=== PATIENT | male | born 1985 ===

== ENCOUNTER 2020-02-25 09:41 | Day surgery (SDC) | payer BC ==
--- OUTSIDE RECORDS SUMMARY | 2020-02-25 09:48 | XMS REPORT | Continuity of Care Document ---
:1985 Author Organization [facility] Care Team Providers Name Role Phone [facility] Unavailable Un available Problems Problem Status Onset Classification Date Comments Sourc e Date Reported Migraine Active Problem 05/16/2019 [facility] (disorder) Group Migraine Active Problem 05/16/2019 [facility] without aura Group (disorder) Medications Medication Details Route Status Patient Ordering Order Source Instructions Provider Date predniSONE 10 See Active mg oral Instructions, 018 Medical tablet 4 tabs PO Group daily x 3 days, then 3 tabs PO daily x 3 days, then 2 tabs PO daily x 3 days, then 1 tab PO daily x 3 days then stop., # 30 tab, 0 Refill(s), Pharmacy: [facility] [id number] Nystatin See Active [id number] UNT/ML Instructions, 017 Medi tana Topical Cream Apply to Group affected area BID until resolved, then for 2 additional weeks., # 30 gm, 2 Refill(s), Pharmacy: [facility] [id number] Allergies, Adverse Reactions, Alerts Substance Category Reaction Severity Reaction Status Date Comments S ource type Reported No Known Assertion Drug Medication allergy Medic al Allergies Group Immunizations Immunization Date Site Status Last Comments Source Given Updated influenza virus Right completed Mario Result Co mment: Fluzone 0.5ml, IM right deltoid, needle: 25g/1", [facility] [place]: 88748-668-29, Lot: [id number], Exp: 02/02/2020, [employer] vaccine, 9 Deltoid Group inactivated<sup>1 No adverse r eaction at time of visit. </sup> influenza virus Right completed Marcus Result Co mment: [facility] [id number] LOT# [id number] EXP 02/01/2019 IM needle 25G 1" [employer]i [employer] Medical vaccine, 8 Deltoid Group inactivated<sup>1 no adverse r eactions at time of visit </sup> influenza virus Right completed Velazquez Result Co mment: [facility] [id number] LOT# [id number] EXP 02/01/2019 IM needle 25G 1" [facility]i [facility] Medical vaccine, 8 Deltoid Group inactivated<sup>2 no adverse r eactions at time of visit </sup> influenza virus Left completed Velazquez Result Co mment: [facility] [id number] LOT# [id number] EXP 02/01/2018 IM needle 25G 1" [employer]i [facility] Medical vaccine, 7 Deltoid Group inactivated<sup>1 no reaction at time of visit </sup> influenza virus Left completed Velazquez Result Co mment: [facility] [id number] LOT# [id number] EXP 02/01/2018 IM needle 25G 1" [employer]i [facility] Medical vaccine, 7 Deltoid Group inactivated<sup>2 no reaction at time of visit </sup> influenza virus Left completed Velazquez Result Co mment: [facility] [id number] LOT# [id number] EXP 02/01/2018 IM needle 25G 1" [employer]i [facility] Medical vaccine, 7 Deltoid Group inactivated<sup>3 no reaction at time of visit </sup> diphtheria/pertus Left completed Velazquez Result Comment: [facility] [id number] LOT# [id number] EXP 06/26/2019 IM needle 25G 1" [employer]ofi [facility] Medical sis, acel/tetanus 7 Deltoid Gr oup adult<sup>2</sup> no reaction at time of visit diphtheria/pertus Left completed Velazquez Result Comment: [facility] 90369-329-68 LOT# [id number] EXP 06/26/2019 IM needle 25G 1" [employer]ofi [facility] Medical sis, acel/tetanus 7 Deltoid Gr oup adult<sup>3</sup> no reaction at time of visit diphtheria/pertus Left completed Velazquez Result Comment: [facility] [id number] LOT# [id number] EXP 06/26/2019 IM needle 25G 1" [employer]ofi [facility] Medical sis, acel/tetanus 7 Deltoid Gr oup adult<sup>4</sup> no reaction at time of visit Results No Data Provided for This Section Pathology Reports No Data Provided for This Section Diagnostic Reports No Data Provided for This Section Consultation Notes No Data Provided for This Section Discharge Summaries No Data Provided for This Section History and Physicals No Data Provided for This Section Vital Signs Vital Sign Value Date Comments Source BMI Calculated 28.93 11/12/2018 [facility] o[facility] Height 190.5 cm 11/12/2018 Medical Grou p Weight 105 11/12/2018 Medical Grou p Systolic (mm Hg) 137 11/12/2018 Medical Group Diastolic (mm Hg) 79 11/12/2018 Medical Group Heart Rate 60 11/12/2018 [facility] p Temperature Oral (F) 98.5 F 11/12/2018 Medi tana Group BMI Calculated 27.73 08/08/2018 Medical Gr oup Weight 100.636 08/08/2018 [facility] p Height 190.5 cm 08/08/2018 Medical Grou p Temperature Oral (F) 98.0 F 08/08/2018 [facility] tana Group Heart Rate 98 08/08/2018 Medical Grou p Systolic (mm Hg) 135 08/08/2018 Medical Group Diastolic (mm Hg) 82 08/08/2018 Medical Group Heart Rate 61 06/05/2018 Medical Grou p Temperature Oral (F) 97.9 F 06/05/2018 [facility] tana Group Height 190.5 cm 06/05/2018 Medical Grou p BMI Calculated 28.16 06/05/2018 Medical Gr oup Weight 102.182 06/05/2018 Medical Grou p Systolic (mm Hg) 119 06/05/2018 Medical Group Diastolic (mm Hg) 74 06/05/2018 Medical Group Weight 107.909 11/28/2017 Medical Grou p BMI Calculated 29.73 11/28/2017 Medical Gr oup Systolic (mm Hg) 129 11/28/2017 Medical Group Diastolic (mm Hg) 77 11/28/2017 Medical Group Temperature Oral (F) 83 F 11/28/2017 [facility] tana Group Heart Rate 83 11/28/2017 Medical Grou p Height 190.5 cm 11/28/2017 Medical Grou p BMI Calculated 31.24 07/01/2017 Medical Gr oup Temperature Oral (F) 98.0 F 07/01/2017 Medi tana Group Heart Rate 86 07/01/2017 Medical Grou p Weight 113.364 07/01/2017 Medical Grou p Systolic (mm Hg) 126 07/01/2017 Medical Group Diastolic (mm Hg) 84 07/01/2017 Medical Group Height 190.5 cm 07/01/2017 Medical Grou p Encounters Location Location Encounter Encounter Reason Attending ADM DC Stat us Source Details Type Number For Provider Date Date Visit Outpatient [id number] RONNELL 12/28 Active [facility] Out[facility] [id number] RONNELL 07/01 Active [facility] MG Outpatient [id number] Ronnell 07/01 07/02 Primary [facility] /[facility] Ethan MG Phone [phone] 07/08 07/10 Primary Message /2016 [facility] Outpatient [id number] RONNELL 08/01 Active [facility] /2017 [facility] Ambulatory [id number] Ronnell 08/01 08/01 Primary Pre-Reg Isbell /2016 [facility] Ethan Outpatient [id number] RONNELL 11/28 Active [facility] Casey MG Outpatient [id number] Ronnell 11/28 11/29 Primary Is[facility] /2017 [facility] Outpatient [id number] RONNELL 06/05 Active [facility] Casey MG Outpatient [id number] Ronnell 06/05 06/06 Primary Isbell /2017 [facility] Outpatient [id number] TIMOTHY 08/08 Active [facility] SIDDIQUI Sebastian MG Outpatient [id number] Ronnell 08/08 08/09 Primary Isbell /2018 [facility] Outpatient [id number] Ronnell 11/12 Active [facility]bell Casey MG Outpatient [id number] Ronnell 11/12 11/13 Primary Isbell /2018 [facility] Ethan MG Between [id number] 11/18 11/19 MH Primary Visit /2018 [facility] Ethan MG Phone [id number] 11/24 11/26 MH Primary Message /2018 [facility] Outpatient [id number] NURSE 05/13 Active [facility] VISIT Casey [facility] Outpatient [id number] Ronnell 05/13 05/14 Primary Isbell /2018 [facility] Procedures Procedure Code Date Perfomer Comments Source Operation [id number] Medical Group Assessment and Plan No Data Provided for This Section Plan of Care No Data Provided for This Section Social History Social History Date Source Social History TypeResponse 11/12/2018 Medical G roup Smoking Status Never smoker; Exposure to Tobacco Smoke None; Cigarette Smoking Last 365 Days No; Reg Smoking Cessation Counseling No entered on: 11/12/18 Family History No Data Provided for This Section Advance Directives No Data Provided for This Section Functional Status No Data Provided for This Section
--- OUTSIDE RECORDS SUMMARY | 2020-02-25 09:48 | XMS REPORT | Summary of Care ---
:[address] [facility] Address [address] [place] [address] Care Team Providers Name Role Phone Pcp, Does Not Have A Primary Care Provider Reason for Visit Reason Comments Exposure LAB Encounter Details Date Type Department Care Team Description 02/24/2020 Laboratory Only [facility] Family Lucia Raza FNP [address] [place] [phone] Suspected Covid-19 [facility], Adc Fam Pob I Virus Infection [address] [place] [address] (Primary D x) [place] [address] Allergies Not on Filedocumented as of this encounter (statuses as of 02/24/2020) Medications Not on filedocumented as of this encounter (statuses as of 02/24/2020) Active Problems Not on filedocumented as of this encounter (statuses as of 02/24/2020) Social History Tobacco Use Types Packs/Day Years Used Date Never Assessed Sex Assigned at Date Recorded Not on file Job Start Date Occupation Industry Not on file Not on file Not on file Travel History Travel Start Travel End No recent travel history available. documented as of this encounter Last Filed Vital Signs Not on filedocumented in this encounter Plan of Treatment Name Type Priority Associated Diagnoses Order S chedule COVID-19 (PCR MOLECULAR LAB Routine Suspected Covid-1 9 Virus Ordered: 02/24/2020 TESTING) Infection Health Maintenance Due Date Last Done Comments VARICELLA VACCINES (1 of 2 - 1987 2-dose childhood series) DTaP,Tdap,and Td Vaccines (1 - 1997 Tdap) Depression Screening 1998 INFLUENZA VACCINE (#1) 2020 PNEUMOCOCCAL 0-64 YEARS COMBINED Aged Out No longer eligible based on SERIES patient's age to complete this topic documented as of this encounter Results Not on filedocumented in this encounter Visit Diagnoses Diagnosis Suspected Covid-19 Virus Infection - Lila briseno documented in this encounter Insurance Payer Benefit Plan Subscriber ID Effective Dates Phone Address Type / Group [facility] [id number] 2018-[place] [phone] [address] PPO/POS [facility] [id number] [place] [address] documented as of this encounter
--- OUTSIDE RECORDS SUMMARY | 2020-02-25 09:48 | XMS REPORT | Summary of Care ---
:1985 Author Organization [facility] - Health Address [address] [place] [address] Care Team Providers Name Role Phone Pcp, Does Not Have A Primary Care Provider Encounter Details Date Type Department Care Team Description 02/24/2020 Letter (Out) [facility] MyChart Message s Doctor Unassigned, No [address] [facility] [place] [address] [address] [facility] [phone] [place] [address] Allergies Not on Filedocumented as of this [...] filedocumented in this encounter Plan of Treatment Health Maintenance Due Date Last Done Comments VARICELLA VACCINES (1 of 2 - 1987 2-dose childhood series) DTaP,Tdap,and Td Vaccines (1 - 1997 Tdap) Depression Screening 1998 INFLUENZA VACCINE (#1) 2020 PNEUMOCOCCAL 0-64 YEARS COMBINED Aged Out No longer eligible based on SERIES patient's age to complete this topic documented as of this encounter Results Not on filedocumented in this encounter Insurance Payer Benefit Plan Subscriber ID Effective Dates Phone Address Type / Group [facility] [id number] 2018-[place] [phone] [address] PPO/POS [facility] [id number] [place] [address] documented as of this encounter
--- OUTSIDE RECORDS SUMMARY | 2020-02-25 09:48 | XMS REPORT | Continuity of Care Document ---
:1985 Author Organization [facility] t Address [address] [place] [address] Care Team Providers Name Role Phone Lab, Adc Fam Pob I Attending Clinician Unavailable Doctor Unassigned, Name Attending Clinician Unavailable Eben Alicea Attending Clinician Problems Condition Condition Condition Status Onset Resolution Last Treating Co mments Source Name Details Category Date Date Treatment Clinician Date Migraine Problem Active 2019-05-16 Mem [facility] (disorder) 00:15:31 l Migraine Dimitri n (disorder) Active Problem 05/16/2019 Medical Group Migraine Problem Active 2019-05-16 [facility] without 00:15:31 l aura Migraine Dimitri n (disorder) without aura (disorder) Active Problem 05/16/2019 Medical Group Allergies, Adverse Reactions, Alerts Allergy Allergy Status Severity Reaction(s) Onset Inactive Treating Comm ents Source Name Type Date Date Clinician No Known No Known Active Mem[facility] a Medicati Medicati l on [facility] [place] Allergie Allergie s s Social History Smoking Status Start Date Stop Date Source Social History [facility] Medications Ordered Filled Start Stop Current Ordering Indication Dosage Frequency Signature Comments Components Source Medication Medication Date Date Medication? Clinician (SIG) Name Name predniSONE Yes See [facility] 10 mg oral 4-26 Instructio l tablet 21:32: ns, 4 tabs Francisca nn 00 PO daily x 3 days, then 3 tabs PO daily x 3 days, then 2 tabs PO daily x 3 days, then 1 tab PO daily x 3 days then stop., # 30 tab, 0 Refill(s), Pharmacy: [facility] [address] Nystatin 2016-08 Yes See [facility]oria 261500 1-27 Instructio l UNT/ML 22:21: ns, Apply Dimitri n Topical 00 to Cream affected area BID until resolved, then for 2 additional weeks., # 30 gm, 2 Refill(s), Pharmacy: [facility] [id number] Vital Signs Vital Name Observation Time Observation Value Comments Source BMI Calculated 2018-11-12 20:05:00 [facility] [place] Height 2018-11-12 20:05:00 190.5 cm [facility] Weight 2018-11-12 20:05:00 [facility] [place] Systolic (mm Hg) 2018-11-12 20:05:00 Pedro rial [place] Diastolic (mm Hg) 2018-11-12 20:05:00 Mem o[facility] [place] Heart Rate 2018-11-12 20:05:00 [facility] [place] Temperature Oral (F) 2018-11-12 20:05:00 98.5 F [facility] BMI Calculated 2018-08-08 20:13:00 [facility] [place] Weight 2018-08-08 20:13:00 [facility] [place] Height 2018-08-08 20:13:00 190.5 cm [facility] [place] Temperature Oral (F) 2018-08-08 20:13:00 98.0 F [facility] [place] Heart Rate 2018-08-08 20:13:00 [facility] [place] Systolic (mm Hg) 2018-08-08 20:13:00 Pedro rial [place] Diastolic (mm Hg) 2018-08-08 20:13:00 Mem o[facility] [place] Heart Rate 2018-06-05 14:10:00 [facility] [place] Temperature Oral (F) 2018-06-05 14:10:00 97.9 F [facility] Height 2018-06-05 14:10:00 190.5 cm [facility] BMI Calculated 2018-06-05 14:10:00 [facility] [place] Weight 2018-06-05 14:10:00 [facility] [place] Systolic (mm Hg) 2018-06-05 14:10:00 Pedro rial [place] Diastolic (mm Hg) 2018-06-05 14:10:00 Mem orial [place] Weight 2017-11-28 21:10:00 [facility] BMI Calculated 2017-11-28 21:10:00 [facility] [place] Systolic (mm Hg) 2017-11-28 21:10:00 Pedro rial [place] Diastolic (mm Hg) 2017-11-28 21:10:00 Mem o[facility] [place] Temperature Oral (F) 2017-11-28 21:10:00 83 F [facility] Heart Rate 2017-11-28 21:10:00 [facility] [place] Height 2017-11-28 21:10:00 190.5 cm [facility] [place] BMI Calculated 2017-07-01 21:59:00 [facility] [place] Temperature Oral (F) 2017-07-01 21:59:00 98.0 F [facility] [place] Heart Rate 2017-07-01 21:59:00 [facility] [place] Weight 2017-07-01 21:59:00 [facility] Systolic (mm Hg) 2017-07-01 21:59:00 Pedro rial [place] Diastolic (mm Hg) 2017-07-01 21:59:00 Mem orial [place] Height 2017-07-01 21:59:00 190.5 cm [facility] [place] Procedures Procedure Date / Time Performed Performing Clinician Sour e Operation [facility] [place] Encounters Start End Encounter Admission Attending Care Care Encounter Source Date/Time Date/Time Type Type Clinicians Facility Department ID 2020-02-24 2020-02-24 Laboratory Lab, Adc [facility] [id number] 13:04:39 13:24:39 Only Fam Pob I Health [id number] [place] [id number] Professio [phone] [place] [address] 2020-02-24 2020-02-24 Letter Doctor MARLEN [id number] 00:00:00 00:00:00 (Out) Unassigned, SHANIKA [id number] [place] [facility] [id number] 2019-05-13 2019-05-13 Outpatient Nixon [facility] [id number] 15:30:00 23:59:59 Talat Eben 07 2018-11-24 2018-11-25 Outpatient [facility] [id number] 16:25:00 23:59:59 01 2018-11-18 2018-11-19 Outpatient [facility] [id number] 14:51:48 14:51:48 05 2018-11-12 2018-11-12 Outpatient Alicea, [facility] [id number] 15:15:00 23:59:59 Talat Eben 2018-08-08 2018-08-08 Outpatient Nixon, [facility] [id number] 14:15:00 23:59:59 Talat Eben 2018-06-05 2018-06-05 Outpatient Nixon, [facility] [id number] 09:30:00 23:59:59 Talat Eben 2017-11-28 2017-11-28 [place] [id number] 16:15:00 23:59:59 Talat Eben 2017-08-01 2017-08-01 [place] [id number] 11:00:00 11:00:00 Talat Eben 2017-07-08 2017-07-09 Outpatient [facility] [id number] 11:01:00 23:59:59 00 2017-07-01 2017-07-01 [place] [id number] 16:15:00 23:59:59 Talat Eben Results This patient has no known results.
[2020-02-25] MEDS ORDERED: METOCLOPRAMIDE 10 MG/2mL INJ ONE (10:55)
[2020-02-25] MEDS ORDERED: Ringers Lactate 1,000 ML IV ONE (10:56)
[2020-02-25] MEDS ORDERED: LIDOCAINE 1% MPF 5 ML VIAL ONE (11:02)
[2020-02-25] MEDS ORDERED: propofoL 200 MG/20 ML VIAL IV ONE (11:02)
[2020-02-25] MEDS ORDERED: FENTANYL CITR 100 MCG/2 ML ONE ×2 (11:02→12:11)
[2020-02-25] MEDS ORDERED: MIDAZOLAM HCL 2 MG/2 ML INJ ONE (11:02)
[2020-02-25] MEDS ORDERED: ROCURONIUM 50 MG/5 ML VIAL IV ONE (11:02)
--- NOTE | 2020-02-25 11:04 | PREOPHP ---
Date of Admission: 02/25/2020 Chief Complaint: Rectal pain. History Of Present Illness: The patient is a 34-year-old gentleman who presented to [facility] with appro ximately 3-day history of increasing right rectal pain. He had a CAT scan done which showed a perire ctal abscess. I was contacted. I advised the patient to come to our hospital for the procedure that he needs. He is awake, alert, complaining of pain. No discharge. No sore throat, runny nose, coug h, headaches, dizziness. No chest pain. No fever or chills. No diarrhea and no previous history of this abscess and no blood in his stool. Review of Systems: Otherwise unremarkable. Past Medical History: Negative. Past Surgical History: Negative. Allergies: NO ALLERGIES. Social History: He denies smoking. Drinks occasionally. Family History: Noncontributory. Physical Examination: Vital Signs: Stable, afebrile. General: Awake, alert, and oriented x3. Head and Neck: Cranial 2 through 12 grossly within normal limits. No neck masses. No JVD. Throat clear. Neck: Supple. Chest: Clear. Heart: S1 and S2. Abdomen: Soft. Extremities: Neurovascularly intact. Neuro: Nonfocal. Rectal: Exam reveals tenderness on the right side of the rectum, painful, difficult to do adequate r ectal exam. Diagnostic Data: CT reviewed. White count is 9.9. Assessment: Perirectal abscess. Recommendation: Admit, n.p.o., IV fluid, IV antibiotics and then to the OR for exam under anesthesia , rigid proctoscopy, and incision and drainage and debridement of perirectal abscess. The patient un derstands the risks, benefits, and alternatives and agrees to procedure. CATINA/FRANCISCO Voice ID: [id number]
[2020-02-25] MEDS: PIPER/TAZO/NS 3.375gm 3.375 GM/100 ML BAG IVPB ONE ×2 (11:07→11:09)
[2020-02-25] MEDS ORDERED: dexAMETHasone 10 MG/ML VIAL ONE (11:33)
[2020-02-25] MEDS ORDERED: KETOROLAC 30 MG/ML INJ ONE (11:33)
[2020-02-25] MEDS ORDERED: ONDANSETRON 4 MG/2 ML VIAL ONE (11:35)
[2020-02-25] MEDS ORDERED: HYDROCODONE/APAP 7.5/325 MG TAB ONE (13:10)
--- NOTE | 2020-02-25 13:25 | OP ---
Date of Procedure: 02/25/2020 Surgeon: Shad Esparza MD Preoperative Diagnosis: Perirectal abscess. Postoperative Diagnosis: Two perirectal abscesses; one on the right posterolateral, one on the left lateral, questionable connection between the 2. Procedure Performed: Exam under anesthesia, rigid proctoscopy, incision drainage and debridement of perirectal abscess x2. Estimated Blood Loss: Minimal. Specimen: C and S. Finding: As above. Anesthesia: General. Complications: None. Disposition: The patient tolerated procedure in stable condition, taken to Recovery in good general condition. Description Of Procedure: The patient was brought to the OR and placed in supine position. General anesthesia was begun. The patient was placed in lithotomy position and prepped and draped in the usu al sterile fashion. Exam under anesthesia revealed a minimal superficial infection on the right post erolateral, but there was not what I was expecting based on the physical exam and the patient was casey lly tender more on the other side. I could not feel anything on the other side, so I contacted our r adiologist and uploaded the CAT scan that was done as outpatient. We discussed the findings of the d etails of the abscess. Basically, the patient had 2 abscesses; one that was fairly deep on the left side in the lithotomy position at the 3 o'clock position and the other one between the 6 and 9 o'cloc k positions on the right side. Subsequently, Marcaine 0.5% was infiltrated locally and 15 blade was used to make a 2 cm incision in both places and both places were probed deeply and there was pus enco untered and pocket encountered, cultures done, wound irrigated, bleeding controlled with cautery, and then wet-to-dry normal saline dressing change applied. The patient tolerated the procedure in stabl e condition and taken to Recovery in good general condition. Discharge Note: The patient will go to day surgery and home when stable. Disposition: Home. Condition: Stable. Discharge Instructions: Resume home medications and diet. Activity as tolerated. No heavy lifting. Remove outer dressing in a.m. Sitz baths prior to dressing changes. Tylenol No. 3 one tablet p.o. q.4 p.r.n. pain, Cipro 500 mg p.o. q.12, Flagyl 500 mg p.o. q.8. Wet-to-dry normal saline dressing changes daily. needed. Follow up in my office in 2 weeks. Call for appointment. CATINA/FRANCISCO Voice ID: [id number] Report ID: [id number]
== END 2020-02-25 14:00 | disposition home health service (06) ==
LOC: DS 09:41
PROVIDERS: ATTEND Surgery
PROC: 0D9P8ZX Drainage of Rectum, Via Natural or Artificial Opening Endoscopic, Diagnostic (ICD-10-PCS; 2020-02-25)
PROC: 0DJD8ZZ Inspection of Lower Intestinal Tract, Via Natural or Artificial Opening Endoscopic (ICD-10-PCS; principal; 2020-02-25 13:30)
DX: K61.1 Rectal abscess (principal)
CPT/HCPCS: 87070; 87205; 87077; 87186; 45300; 46040; J2704; J2765; J2250; J3010 ×2; J2543; J1100; J7120; J2405